=== PATIENT | female | born 1980 | race Caucasian/White ===

== ENCOUNTER 2017-04-11 17:56 | Emergency (ER) | payer MEDICAID ==
[~2017-04-11] VITALS: Ht 152.4 cm; Wt 78.0 kg
[~2017-04-11 17:56] MED LIST: IBUP800T25
[2017-04-11 18:00] VITALS: Ht 152.4 cm; Wt 78.0 kg
--- NOTE | 2017-04-11 21:10 | ERD ---
ER Documentation Chief Complaint Date/Time DATE: 04/11/17 TIME: 21:08 Chief Complaint right hand pain HPI This 36-year-old right handed presents to emergency department for evaluation of right hand injury today while lifting heavy boxes, pain and numbness to dorsum of hand between thumb and forefinger, numbness to fore finger and middle finger ROS All systems reviewed and are negative except as per history of present illness. Medications Home Meds Active Scripts Ibuprofen* (Motrin*) 400 Mg Tab, 400 MG PO Q6, #30 TAB Prov:OLAF WATKINS 04/11/17 Reported Medications Ibuprofen* (Motrin*) 800 Mg Tab 02/05/10 Allergies Allergies: Coded Allergies: No Known Drug Allergy (Verified Allergy, Mild, 02/05/10) PMhx/Soc Medical and Surgical Hx: pt denies Medical Hx, pt denies Surgical Hx History of Surgery: Yes (TUBAL LIGATION) Anesthesia Reaction: No Hx Neurological Disorder: No Hx Respiratory Disorders: No Hx Cardiac Disorders: No Hx Psychiatric Problems: No Hx Miscellaneous Medical Probl: No Hx Alcohol Use: No Hx Substance Use: No Hx Tobacco Use: No Smoking Status: Never smoker Physical Exam Vitals Vitals stable, triage notes reviewed Physical Exam Const: Well-nourished well-hydrated no acute Head: Eyes: ENT: Normal External Ears, Nose and Mouth is membranes moist. Neck: Resp: chest and fall symmetrically no respiratory distress Cardio: Abd: Skin Back: Ext: Hand - bilateral: Skin: No laceration, or soft tissue swelling dorsum of right hand between thumb and forefinger Compartments: Soft Sensation: intact shoulder/pinky/middle finger/thumb web space Bones: Nontender Snuffbox: Nontender Joints: No effusion Wrist: Flex/Ext: Normal Uln/Radial deviation: Normal Pron/Supination Normal Finger: Flex/Ext: Normal Add/abd: Normal Thumb: Flex/Ext: Normal Opposition: Normal Thumbs up: Normal Neur: Awake and alert Psych: Normal Mood and Affect Results 24 hrs Current Medications Medications (Trade) Dose Ordered Sig/Devante Route PRN Reason Start Time Stop Time Status Last Admin Dose Admin Ibuprofen (Motrin) 400 mg ONCE ONCE PO 04/11/17 21:30 04/11/17 21:31 DC 04/11/17 21:33 Procedures/MDM PROCEDURE: Right hand. CLINICAL INDICATION: Pain. TECHNIQUE: 2 views including PA and lateral views of the right hand were obtained. COMPARISON: None. FINDINGS: There is no fracture, dislocation or bone destruction. The joint spaces are within normal limits. Bone mineralization is within normal limits. There is no radiopaque foreign body or abnormal calcification. IMPRESSION: No evidence of fracture. Electronically viewed and signed by .Filemon Dickson MD, on 04/11/2017 22:22 This pleasant 36-year-old female presents to emergency department for evaluation of right hand injury. Injury happened today while moving heavy boxes. Pain is located on the dorsum of right hand between thumb and forefinger. She has tender soft tissue swelling no obvious bony deformity. X- ray obtained with the urologist findings: There is no fracture, dislocation or bone destruction. The joint spaces are within normal limits. Bone mineralization is normal limits. There is no radiographic foreign body or abnormal calcification. No evidence of fracture. Patient treated with ibuprofen, ice, with improvement of symptoms. Patient will be discharged with ibuprofen, traction and Rice therapy, rest ice compression elevation. Follow- up with primary care physician if symptoms fail to improve in the next 48 hours as expected. Will be provided information for all of [facility] patient is stable with no new complaints during ER course, clinically there is no current evidence to suggest rupture, dislocation, cellulitis, or any other emergent condition appearing to require further evaluation or hospitalization. Patient will be treated for a sprain as outlined above. I feel the patient is stable for discharge at this time. I have discussed results, examination findings, the treatment plan with the patient and family present prior to discharge. Indications for emergent reevaluation, side effects of medication were also discussed. All questions were answered. Patient verbalizes understanding and agrees with plan of care. Departure Diagnosis: Primary Impression: Pain of hand Laterality: right Qualified Code: M79.641 - Pain of right hand Condition: Good Patient Instructions: Sprain Hand Referrals: [facility] Additional Instructions: Thank you for for coming to [facility] for your care today. Please ask your nurse or provider if you have questions about your care today and do not leave until all your questions have been answered. Please use any medications given as directed and follow-up with your doctor (or the doctor you were referred to) in the next 2-3 days. If you do not have a primary care doctor you may follow up at the [facility] (listed below). You may also use motrin and tylenol as needed for fever and/or pain unless instructed otherwise by your provider or nurse. Indications for more urgent follow-up have been discussed, but you may return to the Emergency Department at ANY time for any worrisome or worsening symptoms. If you have abdominal pain, please know that no test or exam you received is perfect and you should follow up within 8 hours for continued pain. If you had any imaging studies today, such as an X-Ray or CT Scan, these studies will be reviewed later by a radiologist. You will be called if there are important findings that were not identified today, so make sure the contact information you provided at registration is correct. If you received any narcotic pain control medicine today, such as Vicodin, Morphine or Dilaudid, your coordination and judgment may be affected for a number of hours. Please do not drive or operate heavy machinery, and you may want someone to assist you at home. If you were given a prescription for narcotic medication, be aware that it is very addictive- use sparingly and only if necessary. OLAF WATKINS Apr 11, 2017 21:10 narcotic medication, be aware that it is very addictive- use sparingly and only if necessary. OLAF WATKINS Apr 11, 2017 21:10
[2017-04-11] MEDS ORDERED: IBUPROFEN 200 MG TAB PO ONE (21:30)
--- NOTE | 2017-04-11 22:22 | RADRPT ---
PROCEDURE: Right hand. CLINICAL INDICATION: Pain. TECHNIQUE: 2 views including PA and lateral views of the right hand were obtained. COMPARISON: None. FINDINGS: There is no fracture, dislocation or bone destruction. The joint spaces are within normal limits. Bone mineralization is within normal limits. There is no radiopaque foreign body or abnormal calcif ication. IMPRESSION: No evidence of fracture. .Filemon Dickson MD, MD Date Time Electronically viewed and signed by .Filemon Dickson MD, on 04/11/2017 22:22 .T/
[2017-04-11] MEDS ORDERED: IBUP400T22 PO (23:41)
[2017-04-12 00:22] VITALS: BP 127/74; PULSE 67; RESP 20
== END 2017-04-11 23:51 | disposition home or self-care (01) ==
LOC: FTE 17:56
DX: M79.641 Pain in right hand (principal)
CPT/HCPCS: 73130; Z7502; Z7610; 73120